=== PATIENT | female | born 1995 | race Hispanic/Latino ===

== ENCOUNTER 2020-05-13 18:42 | Emergency (ER) | payer OTHER, SELFPAY ==
[2020-05-13 18:48] VITALS: BP 121/70; PULSE 72; RESP 12; TEMP 36.7; O2SAT 100; BMI 26.4
--- NOTE | 2020-05-13 19:18 | ED.CHESTPAIN ---
HPI - Chest Pain General Chief Complaint: Chest Pain Stated Complaint: Left Sided Chest Pain Time Seen by Provider: 05/13/20 18:58 Source: patient Mode of arrival: Ambulatory Limitations: no limitations History of Present Illness HPI narrative: 25-year-old female here for evaluation of left-sided chest discomfort. States symptoms started yesterday. Has been consistent today. Has had similar pain in the past that has been related to working out home who she has not been working out recently. No trauma. No problems breathing. She is able to make it worse by touching the left side of her chest. Has not tried anything for symptoms prior to arrival. Related Data Allergies Allergy/AdvReac Type Severity Reaction Status Date / Time No Known Drug Allergies Allergy Verified 05/13/20 18:55 Review of Systems Constitutional Constitutional: Denies fever(s) and Denies headache(s) ENT Ears, Nose, Mouth, and Throat: Denies headache(s) Cardiovascular Cardiovascular: Reports chest pain and Denies dyspnea Respiratory Respiratory: Denies cough and Denies dyspnea Gastrointestinal Gastrointestinal: Denies abdominal pain, Denies nausea and Denies vomiting Integumentary/Breasts Skin/Breast: Denies lesions and Denies rash Neurologic Neurologic: Denies behavioral changes and Denies headache(s) Psychiatric Psychiatric: Denies behavioral changes Hematologic/Lymphatic Hematologic/Lymphatic: Denies easy bleeding and Denies easy bruising Patient History Medical History Healthy adult (Acute) Social History Smoking Status: Never smoker Smoking Status: Never smoker Substance Use Type: does not use Exam Initial Vital Signs Initial Vital Signs: Vital Signs Temperature 98.1 F 05/13/20 18:48 Pulse Rate 72 05/13/20 18:48 Respiratory Rate 12 05/13/20 18:48 Blood Pressure 121/70 05/13/20 18:48 Pulse Oximetry 100 05/13/20 18:48 Const General: cooperative and comfortable Limitations: mental status not altered HENME Head: normal to inspection and normocephalic Chest Chest: No crepitus and tenderness Resp Effort & Inspection: normal respiratory effort Auscultation: clear to auscultation bilaterally Cardio Rate: regular rate Rhythm: regular rhythm Skin Lesions: no lesions Rashes: no rashes Neuro General: patient alert, patient awake and patient oriented x3 Cognition: normal cognition Speech: speech normal Extrem General: normal to inspection and capillary refill normal Psych Appearance: grossly normal and well kempt Course Orders Ordered: ED Orders 05/13/20 18:56 EKG-12 Lead Stat Vital Signs Vital signs: Vital Signs - 8 hr 05/13/20 18:48 Temperature 98.1 F Pulse Rate 72 Respiratory Rate 12 Blood Pressure 121/70 Pulse Oximetry 100 MDM - Chest Pain ECG Data Attestation: I personally reviewed and interpreted this ECG as follows: Prior ECG tracings: not available for review Interpretation: Sinus rhythm Ventricular rate is 72 Normal axis Normal QRS Normal QTC No ST T wave changes MDM Narrative Medical decision making narrative: Reproducible left-sided anterior chest wall pain. EKG is unremarkable. Low suspicion for ACS. Low suspicion for pneumonia. Lung exam clear. No fevers. I feel we can hold on further workup for now patient given return precautions and follow-up instructions. She expressed understanding and agreement. Discharge Plan Departure Patient Disposition: Home Clinical Impression: Acute chest wall pain Discharge Date/Time: 05/13/20 19:27 Activity Restrictions/Additional Instructions: Your pain today is most consistent with a muscular etiology. Your EKG was unremarkable. Recommend that you take anti-inflammatories. No restrictions on your activities. Contact your primary provider for follow-up. Return to the emergency department for any new or worsening symptoms
== END 2020-05-13 19:27 | disposition home or self-care (01) ==
PROVIDERS: Emergency Provider Emergency Medicine
DX: R07.89 Other chest pain (principal)
CPT/HCPCS: 93005; 99281; 99283